=== PATIENT | female | born 1965 | race Caucasian/White ===

== ENCOUNTER → 2018-02-15 | Outpatient (CLI) | payer BC ==
--- NOTE | 2018-02-16 09:35 | RADIOLOGY IMAGING REPORT ---
FACILITY: [facility] PATIENT NAME: GENIA EVANS : [id number] MR: [id number] V: [id number] EXAM DATE: ORDERING PHYSICIAN: ROSA ADHIKARI TECHNOLOGIST: Paola Alston PROCEDURE:BILATERAL DIGITAL SCREENING MAMMOGRAM WITH CAD ASSISTED INTERPRETATION & 3D TOMOSYNTHESIS COMPARISON:Prior mammograms 08/23/13, 06/19/12. INDICATIONS:screening FINDINGS: Moderately heterogeneous fibroglandular tissue is seen throughout the breasts. The parenchymal pattern has remained stable allowing for difference in mammographic technique & patient positioning. There is no evidence of malignant appearing mass, malignant appearing calcifications or other secondary sign of malignancy in either breast. DIAGNOSTIC CATEGORY 1--NEGATIVE. RECOMMENDATIONS: ROUTINE MAMMOGRAM AND CLINICAL EVALUATION. IMPRESSION: BIRADS 1: Negative. No significant abnormality is seen. Dictated by: Michelle Romero M.D. on 02/15/2018 at 14:35 Transcribed by: KENNA on 02/15/2018 at 14:46 Approved by: Michelle Romero M.D. on 02/16/2018 at 9:34 [facility]
== END ==
LOC: MAMO 01:03
PROVIDERS: ATTEND Student in an Organized Health Care Education/Training Program
DX: Z12.31 Encounter for screening mammogram for malignant neoplasm of breast (principal)
CPT/HCPCS: 77063; 77067

== ENCOUNTER 2018-04-04 00:39 | Day surgery (SDC) | payer BC ==
[~2018-04-04] VITALS: Ht 165.1 cm; Wt 80.7 kg
[~2018-04-04 00:39] MED LIST: CALC-741 PO; CHOL10005 PO; CITA-145 PO; IBUP-136 PO; LORA-802 PO; VITA0.4T10 PO; ZOLP-1 PO
[2018-04-04] MEDS ORDERED: PROPOFOL EMUL(*) 10MG/ML 20 ML 20 ML ONE (07:10)
[2018-04-04 10:02] VITALS: BP 126/84
[2018-04-04] MEDS ORDERED: NORMOSOL R SOLN(*) 1000 ML BAG 1,000 ML IV PRN (10:55)
[2018-04-04] MEDS ORDERED: LIDOCAINE/SOD BICARB 8.4% SYR ID ONE (10:55)
[2018-04-04 12:51] VITALS: BP 127/84
--- NOTE | 2018-04-04 12:55 | Short(Outpt) Discharge Summary ---
Discharge Summary Reason for Hosp/Final Diag: (1) Family history of colonic polyps Hospital Course & Plan: Colonoscopy completed without any problems, normal. Departure Discharge to: Home, Self Care Discharge Instructions Home Meds Reported Medications Calcium/Magnesium (CALCIUM WITH MAGNESIUM TAB) 1 Each Tablet, 1 EACH PO QDAY 03/27/18 Loratadine (CLARITIN) 10 Mg Tablet, 10 MG PO QDAY Y for ALLERGY SYMPTOMS 03/27/18 Vitamin B Complex/Folic Acid (VITAMIN B-50 COMPLEX TABLET) 0.4 Mg Tablet, 1 TAB PO QDAY 03/09/18 Cholecalciferol (Vitamin D3) (VITAMIN D3) Unknown Strength Tablet, PO QDAY, TAB 03/09/18 Citalopram Hydrobromide (CITALOPRAM HBR) 20 Mg Tablet, 1 TAB PO QDAY, TAB 03/09/18 Zolpidem Tartrate (AMBIEN) 5 Mg Tablet, 1 TAB PO QHS, TAB 03/09/18 Diet: Regular Activity: As Tolerated Special Instructions: Your colonoscopy was completed without any problems and your prep was excellent (Good Job!!). I didn't find any polyps, cancers, or other problems, it was completely normal. I recommend that your next colonoscopy be in 5 years due to your family history of colon polyps. TRINO BENITEZ MD Apr 04, 2018 12:55
[2018-04-04 13:17] VITALS: BP 117/74
[2018-04-04 13:19] VITALS: BP 108/84
== END 2018-04-04 13:30 | disposition home or self-care (01) ==
LOC: OR 00:39
PROVIDERS: ATTEND Surgery
DX: Z12.11 Encounter for screening for malignant neoplasm of colon (principal); Z80.0 Family history of malignant neoplasm of digestive organs; F32.9 Major depressive disorder, single episode, unspecified; K21.9 Gastro-esophageal reflux disease without esophagitis; E66.9 Obesity, unspecified; Z68.29 Body mass index [BMI] 29.0-29.9, adult
CPT/HCPCS: 00812; 45378; J2704

== ENCOUNTER 2018-10-31 00:04 | Observation (INO) | payer BC ==
[2018-10-31] VITALS (15 sets, daily range): BP systolic 102–139; BP diastolic 53–85
[~2018-10-31] VITALS: Ht 165.1 cm; Wt 75.3 kg
[~2018-10-31 00:04] MED LIST changes: +ETHI1TAB3 PO; +SCOP1PAT16
[2018-10-31 07:22] LABS: PLATELET COUNT, AUTOMATED 244 K/uL (150-450)
[2018-10-31] MEDS ORDERED: MANNITOL* (20%)100 GM/500ML BG 500 ML IVPB ONE (07:48)
[2018-10-31] MEDS ORDERED: VASOPRESSIN 20 UNIT/ML VIAL ONE (07:48)
[2018-10-31] MEDS ORDERED: ROPIVACAINE 0.2% 20 ML VIAL ONE ×2 (07:48→11:05)
[2018-10-31] MEDS ORDERED: ESTROGENS CONJ VAG CREAM 30 GM TUBE PV ONE (07:48)
[2018-10-31] MEDS ORDERED: NS(*) 0.9% 100 ML BAG 100 ML ONE (07:48)
[2018-10-31] MEDS ORDERED: DEXAMETHASONE SOD 4 MG/ML VIAL ONE ×2 (08:46→09:01)
[2018-10-31] MEDS ORDERED: ONDANSETRON 4 MG/2 ML VIAL ONE ×2 (08:46→10:42)
[2018-10-31] MEDS ORDERED: PROPOFOL EMUL(*) 10MG/ML 20 ML 20 ML ONE (08:46)
[2018-10-31] MEDS ORDERED: HYDROmorphone HCL 2 MG/ML SDV ONE ×2 (08:46→12:22)
[2018-10-31] MEDS ORDERED: ROCURONIUM BROM 10 MG/ML 10 ML ONE (08:46)
[2018-10-31] MEDS ORDERED: fentaNYL CITR 250 MCG/5 ML AMP ONE (08:46)
[2018-10-31] MEDS ORDERED: LIDOCAINE MPF 1% 5 ML VIAL ONE (08:46)
[2018-10-31] MEDS ORDERED: SUGAMMADEX SOD 200 MG/2 ML SDV ONE (08:46)
[2018-10-31] MEDS ORDERED: KETAMINE HCL-NS 50 MG/5 ML SYR ONE (08:50)
[2018-10-31] MEDS ORDERED: KETOROLAC 30 MG/ML VIAL ONE (11:19)
[2018-10-31] MEDS ORDERED: PROMETHAZINE 25 MG/ML 1 ML AMP IVP PRN (11:30)
[2018-10-31] MEDS ORDERED: ACETAMINOPHEN 325 MG TAB PO PRN (11:30)
[2018-10-31] MEDS ORDERED: ONDANSETRON 4 MG/2 ML VIAL IV PRN (11:30)
[2018-10-31] MEDS ORDERED: LIDOCAINE/SOD BICARB 8.4% SYR ID ONE (11:40)
[2018-10-31] MEDS ORDERED: MIDAZOLAM 2 MG/2 ML VIAL IVP PRN (11:40)
[2018-10-31] MEDS ORDERED: cefOXitin/DEX(*) 2GM/50ML PREM 50 ML IVPB ONE (11:40)
[2018-10-31] MEDS ORDERED: FAMOTIDINE 20 MG TAB PO ONE (11:40)
[2018-10-31] MEDS ORDERED: NORMOSOL R SOLN(*) 1000 ML BAG 1,000 ML IV PRN (11:40)
[2018-10-31] MEDS ORDERED: MIDAZOLAM 2 MG/2 ML VIAL ONE (11:45)
[2018-10-31] MEDS ORDERED: OXYC-865 PO (11:48)
[2018-10-31] MEDS ORDERED: IBUP800T37 PO (11:48)
[2018-10-31] MEDS ORDERED: DOCU-416 PO (11:48)
[2018-10-31] MEDS ORDERED: SULF-198 PO (11:48)
--- NOTE | 2018-10-31 11:50 | Post Operative Note ---
Operative Note - SLIP COVER CUTTER Operative Day Date: Oct 31, 2018 Time: 11:37 Physicians Surgeon: Tita Customer Engagement Specialist: Ruth Alcala Anesthesia: GETA Diagnosis Pre-Op Diagnosis: Menometrorrhagia VALDO Recotocele Outlet obstruction constipation urethral hypermobility Post-Op Diagnosis: same Procedure Findings: [id number] Procedure(s): RATLH BSO MMC Cysto posterior repair TO sling urethropexy Specimen Removed:(Maybe N/A): uterus, tubes, ovaries Complications: none Fluids Fluids: 2300 ml Estimated Blood Loss: 50 Dictated Date OP Note Dictated: Oct 31, 2018 Time OP Note Dictated: 11:38 Copies to: ELISEO MASTERS MD ; ELISEO MASTERS MD Oct 31, 2018 11:49
[2018-10-31] MEDS ORDERED: fentaNYL CITR 100 MCG/2 ML AMP ONE ×2 (11:55→12:17)
[2018-10-31] MEDS: DLR(*) 1000 ML BAG 1,000 ML IV PRN ×2 (13:42→20:02)
--- NOTE | 2018-10-31 13:48 | OPERATIVE REPORT 1 ---
EVENT DATE: October 31, 2018 SURGEON: Joel Rivers MD ANESTHESIOLOGIST: Ángel Ledesma MD ANESTHESIA: General endotracheal. OPEN SOAPER TENDER: Ruth Alcala PA-C PREOPERATIVE DIAGNOSIS 1. Menometrorrhagia. 2. Enlarged uterus. 3. Rectocele. 4. Outlet obstruction and constipation. 5. Stress urinary incontinence. POSTOPERATIVE DIAGNOSIS 1. Menometrorrhagia. 2. Enlarged uterus. 3. Rectocele. 4. Outlet obstruction and constipation. 5. Stress urinary incontinence. PROCEDURE PERFORMED 1. Robotic assisted total laparoscopic hysterectomy. 2. Bilateral salpingo oophorectomy. 3. Modified Benavidez's culdoplasty. 4. Diagnostic cystoscopy. 5. Posterior colporrhaphy. 6. Transobturator sling urethropexy. ESTIMATED BLOOD LOSS Minimal. FLUIDS 2300 cc IV crystalloid. FINDINGS Upon inspecting the pelvis, the uterus was observed to be enlarged and had scarring along the posterior surface bilateral uterosacral ligaments and Clayton's windows in the posterior cul-de-sac consistent with prior endometriosis. Normal appearing ovaries and tubes. DESCRIPTION OF PROCEDURE The patient was brought to the operating room with a working IV and placed in the dorsal supine position. She was placed under general endotracheal anesthesia and moved to the dorsal lithotomy position. She was then prepped in the normal sterile fashion. A weighted speculum was placed in the vagina. The cervix was grasped on the anterior lip with a single-toothed tenaculum. The uterus was sounded to a depth of 9 cm and a large VCare uterine manipulator was selected and prepared. The cervix was carefully dilated to accommodate. The green VCare cup was sutured against the cervix while the pneumocup was approximated against this cup and secured in place. A Rollins catheter was placed to dependent drainages. The legs were brought back to the supine position and gloves were changed. The umbilicus was then infiltrated with 0.2% Naropin and an 8 mm stab incision was made. The anterior abdominal wall was elevated while a Veress needle was passed through this incision into the abdomen and pneumoperitoneum was created to an intraabdominal pressure of 20 mmHg. This was reduced to 15 once all ports had been placed. The Veress needle was then removed and an 8 mm bladeless trocar was passed through this incision into the abdomen. This was performed via direct visualization with the scope and without incident. Additional ports were placed, two left lateral and two right lateral, all 8 mm in size and under direct visualization. These were performed without incident and the patient was moved to the Trendelenburg position. The bowel was swept out the pelvis. The uterus and pelvic contents were inspected with the above findings noted. The robot was then brought overlying the patient and the camera was placed and docked and a targeting procedure was performed and passed. All other arms were then docked and instruments were placed as follows: The vessel sealer on arm #1, camera on #2, monopolar scissors on #3, and ProGrasp on #4. These were all directed into the pelvis under direct visualization. Once this had been performed, I scrubbed out and presented to the console. The procedure went as follows: The right adnexa was grasped and put on medial stretch. The ureter was observed peristalsing well below the operative field. Therefore, the right ovary and tube were excised using the vessel sealer along its pelvic connection up to the round ligament which was in likewise fashion cauterized and transected. The uterus was retroverted and the broad ligament was into anterior and posterior leaflets. The anterior leaflet followed an anterior dissection overlying the bladder and cervix. These were pushed away from the VCare cup which was palpable beneath and a colpotomy was performed in order to identify the cup in this location. The posterior leaflet was then dissected towards the uterosacral ligament exposing the uterine vasculature. The uterine vessels were then cauterized times 2 in a perpendicular fashion and then transected, followed by parallel bites along the lateral uterus, down to and overlying the VCare cup. Attention was then turned to the contralateral side which proceeded in the same fashion, dissecting the left adnexa away from its pelvic connection after observing the ureter peristalsing well beneath the operative area. This proceeded up to the round ligament which was cauterized and transected and the broad ligament was into anterior and posterior leaflets, completing the anterior dissection and skeletonizing posteriorly towards the uterosacral ligament. The uterine vessels were then cauterized in a perpendicular fashion and transected, followed by parallel bites along the lateral uterus, down to and overlying the VCare cup. The colpotomy incision was then extended around the entire cervix in a circumferential fashion, through the uterosacral ligaments bilaterally and to the contralateral side, freeing the uterus from its pelvic attachment. It was then removed through the vagina. A light amount of cautery was applied to the vaginal cuff and some capillary bleeders and then instruments were changed for suturing. A long-tip forceps grasper was placed on arm #1 and Alfonso Supercut needle grasper was placed on #2. An 0 Vicryl was then passed into the abdomen and the vaginal angle was suture ligated and secured to the ipsilateral uterosacral ligament in order to support the vaginal cuff. This was performed on both sides. The vaginal cuff was closed then using 2-0 V-Loc suture in a running nonlocking fashion. There was excellent reapproximation of the skin edges and hemostasis achieved. The pelvis was irrigated and suctioned dry. There were no visible bleeders. Therefore, the pneumoperitoneum was suctioned out. All robot instruments were removed and the robot was undocked. The skin incisions were repaired with 4-0 Monocryl simple subdermal and covered with Dermabond skin adhesive. Attention was then turned, after I scrubbed back in, to the posterior repair. It was a distal defect and it was inspected and demarcated and the repair was planned as a zay shaped wedge resection of the perineal body, followed by a linear incision along the length of the defect. This was performed after infiltrating with dilute Pitressin solution. The vaginal mucosa was dissected away from the underlying rectopelvic fascia and then a purse-string stitch was placed to reduce the size of the defect. This was followed by Amy plication stitches along the length of the defect and a reconstruction of the perineal body. Excess vaginal mucosa was trimmed away and a finger was inserted into the rectum in order to palpate the entire defect which had been repaired nicely. Therefore, gloves were changed. The vaginal repair was performed with 2-0 Vicryl in a running locking stitch. Attention was then turned to the sling. The legs were brought to the 45 degree angle position. The Rollins catheter was used to identify the urethral vesical junction and the midurethra was identified with assistance. A 2 cm linear incision was made along the length of the urethra and two puncture incisions were placed overlying the transobturator fossa at the level of the clitoris. Dissection with tenotomy scissors at a 45 degree angle towards the transobturator fossa was then performed in a blunt fashion and using a finger, this was extended to the posterior transobturator fossa. A hook was then passed through the puncture incision, through the transobturator membrane, hugging the pubic rami, rotated at 45 degrees and continued its journey into the dissected space midurethra. The sling was attached and the same procedure was followed on the contralateral side. A Rollins catheter was then removed and diagnostic cystoscopy was performed. The entire bladder was inspected and found to be without injury. Both ureteral orifices were observed to have a strong urine jet. Mannitol was the insufflation media, therefore the jets were observed easily. The bladder was then drained. The Rollins catheter was replaced and a Dale clamp was used to grasp approximately 1 cm segment of the sling material to proximate against the urethra with the Rollins catheter in place, while the sleeves of the sling were removed. Once the Dale was removed, the slack in the sling was released and tested against passage of the curved Cross scissor beneath and this was performed easily. Therefore, the tension was just right at this point. Therefore, the excess mesh was trimmed away at the perineum. The vagina mucosa was repaired with a 2-0 Vicryl plus. The vagina was packed with a Kerlix sponge moistened with Premarin cream. The puncture incisions on the groin were covered with Dermabond skin adhesive. Her legs were brought back to the supine position. She was awakened from general anesthesia in stable condition with the Rollins catheter to dependent drainage. She tolerated the procedure well. Sponge, lap, needle and instrument counts were all correct times 3. MTDD
[2018-10-31] MEDS: HYDROmorphone HCL 2 MG TAB PO PRN ×2 (15:48→20:07)
[2018-10-31] MEDS: SIMETHICONE 80 MG CHEW CHEW PRN ×2 (15:48→20:01)
[2018-10-31] MEDS: KETOROLAC 30 MG/ML VIAL IVP SCH (17:58)
[2018-10-31] MEDS: DOCUSATE CALCIUM 240 MG CAP PO SCH (20:01)
[2018-10-31] MEDS: TRIMETH/SULFA DS 160-800MG TAB PO SCH (20:02)
[2018-10-31] MEDS ORDERED: ZOLPIDEM TARTRATE 10 MG TAB PO PRN (21:00)
[2018-11-01] MEDS: KETOROLAC 30 MG/ML VIAL IVP SCH ×2 (00:28→06:21)
[2018-11-01] MEDS: SIMETHICONE 80 MG CHEW CHEW PRN (02:40)
[2018-11-01 03:00] VITALS: BP 113/74
[2018-11-01 06:41] LABS: PLATELET COUNT, AUTOMATED 210 K/uL (150-450)
[2018-11-01 08:00] VITALS: BP 111/69
[2018-11-01] MEDS: TRIMETH/SULFA DS 160-800MG TAB PO SCH (08:18)
[2018-11-01] MEDS: DOCUSATE CALCIUM 240 MG CAP PO SCH (08:19)
[2018-11-01] MEDS ORDERED: CITALOPRAM HYDROBROM 20 MG TAB PO SCH (09:00)
[2018-11-01 09:12] VITALS: Ht 165.1 cm; Wt 75.3 kg
[2018-11-01 11:00] VITALS: BP 106/71
[2018-11-01] MEDS ORDERED: IBUPROFEN 800 MG TAB PO PRN (12:00)
--- NOTE | 2018-11-01 15:49 | OB/GYN Progress Note ---
OB Subjective Progress Notes Subjective Doing well. Pain well controlled and ambulating. Minimal bleeding. Has been up to the BR several times and has had variable post-void volumes with the bladder scanner ranging from 150-200. She notes less urine stream, around 50% from before. She notes some start and stop stream michel. Otherwise feels well. GI: NEG Nausea : Voiding Well Pain: Mild OB Objective Physical Exam Vital Signs Date Time Temp Pulse Resp B/P (MAP) Pulse Ox O2 Delivery O2 Flow Rate FiO2 11/01/18 11:00 97.9 76 16 106/71 (83) 92 Room Air 11/01/18 08:00 1.0 Intake and Output 11/01/18 06:59 Intake Total 7609 ml Output Total 2800 ml Balance 4809 ml Intake Oral 1800 ml IV Total 3259 ml Other 2550 ml Output Urine Total 2200 ml Emesis 600 ml # Voids 1 General Appearance: Alert/Awake/No Acute Distress Cardiovascular: Normal Rhythm & Peripheral Pulses, Regular Rate and Rhythm Respiratory: No Respiratory Distress, Clear to Auscultation Abdomen: Soft, Non-Tender, Non-Distended Extremities: No Cyanosis,Clubbing or Edema Integumentary: Skin Intact without Lesions or Rash Psychological: Alert & Oriented X3, Appropriate Mood & Affect Result Diagram: 11/01/18 0617 Assessment and Plan [employer] Plan: Routine Post-Op Care, Discharge Home Today Problems: (1) Other specified aftercare following surgery Assessment & Plan: Looking well enough to go home. Will assess the bladder again and if straight cath postvoid is >200 will leave the catheter indwelling and send home with the catheter. Discharge instructions reviewed. (2) History of robot-assisted laparoscopic hysterectomy ELISEO MASTERS MD Nov 01, 2018 15:49
[2018-11-01] MEDS ORDERED: HYDR2TAB4 PO (15:50)
--- NOTE | 2018-11-01 15:52 | Short(Outpt) Discharge Summary ---
Discharge Summary Reason for Hosp/Final Diag: (1) Other specified aftercare following surgery Hospital Course & Plan: Looking well enough to go home. Will assess the bladder again and if straight cath postvoid is >200 will leave the catheter indwelling and send home with the catheter. Discharge instructions reviewed. (2) History of robot-assisted laparoscopic hysterectomy Departure Discharge to: Home, Self Care Discharge Instructions Home Meds Active Scripts Hydromorphone Hcl (HYDROMORPHONE HCL) 2 Mg Tablet, 2 MG PO Q4H PRN for PAIN, #10 TAB 0 Refills Prov:ELISEO MASTERS MD 11/01/18 Oxycodone Hcl/Acetaminophen (PERCOCET 5-325 MG TABLET) 1 Each Tablet, 1 EACH PO Q4-6H PRN for PAIN, #20 TAB 0 Refills TAKE 1 TABLET NEEDED FOR PAIN - NO CLOSER THAN EVERY 4-6 HOURS. Prov:SATHISH ERWIN 10/31/18 Reported Medications Scopolamine (Scopolamine) 1 Mg/3 Day Patch.td.3 10/29/18 Ethinyl Estradiol/Drospirenone (MANNY 28 TABLET) 1 Each Tablet, 1 EACH PO QDAY, TAB 10/22/18 Loratadine (CLARITIN) 10 Mg Tablet, 10 MG PO QDAY PRN for ALLERGY SYMPTOMS 03/27/18 Vitamin B Complex/Folic Acid (VITAMIN B-50 COMPLEX TABLET) 0.4 Mg Tablet, 1 TAB PO QDAY 03/09/18 Cholecalciferol (Vitamin D3) (VITAMIN D3) Unknown Strength Tablet, PO QDAY, TAB 03/09/18 Citalopram Hydrobromide (CITALOPRAM HBR) 20 Mg Tablet, 1 TAB PO QDAY, TAB 03/09/18 Zolpidem Tartrate (AMBIEN) 5 Mg Tablet, 1 TAB PO QHS, TAB 03/09/18 Follow up Referrals: [facility] - In Two Weeks @ [facility] with ELISEO MASTERS MD Diet: Regular Activity: As Tolerated Copies to: ELISEO MASTERS MD ; ELISEO MASTERS MD Nov 01, 2018 15:52
[2018-11-01 16:18] VITALS: BP 124/89
[2018-11-02] MEDS ORDERED: INFLUENZA VIRUS VAC 0.5ML SYR IM ONLY ONE (11:30)
== END 2018-11-01 15:51 | disposition home or self-care (01) ==
LOC: OR 00:04 → PED 13:20
PROVIDERS: ADMIT Obstetrics & Gynecology; ATTEND Obstetrics & Gynecology
DX: N92.1 Excessive and frequent menstruation with irregular cycle (principal); N81.6 Rectocele; K59.00 Constipation, unspecified; N13.9 Obstructive and reflux uropathy, unspecified; N39.3 Stress incontinence (female) (male)
CPT/HCPCS: 36415; 57288; 58571; 84703; 85014; 85018; 85025; 88307; 96372; C1771; G0378; J0694; J1100; J1170; J1885; J2001; J2250; J2405; J2704; J2795; J3010; J3490; J7050; S2900